=== PATIENT | female | born 1970 | race African-American/Black ===

== ENCOUNTER 2021-08-29 04:38 | Emergency (ER) | payer SELFPAY ==
[~2021-08-29] VITALS: Ht 160 cm; Wt 99.0 kg
[2021-08-29 05:05] VITALS: BP 174/105
[2021-08-29 07:24] LABS: CHLORIDE 105 mEq/L (98-107)
[2021-08-29 07:25] LABS: BASOPHILS % 0.3 % (0.0-2.0); EOSINOPHILS % 0.2 % (0.0-5.0); HEMATOCRIT. 43.9 % (36.0-48.0); HEMOGLOBIN. 15.1 g/dL (12.0-16.0); MEAN CORPUSCULAR HEMOGLOBIN 32.3 pg (28.0-32.0); MEAN CORPUSCULAR VOLUME 94.3 fL (81.0-99.0); MEAN PLATELET VOLUME 7.9 fl (7.4-10.4); MONOCYTES % 8.6 % (2.0-8.0); NEUTROPHILS % 78.9 % (40.0-76.0); PLATELET 375 x1000/uL (130-400); RED BLOOD CELL COUNT 4.66 mill/uL (4.2-5.4); RED CELL DISTRIBUTION WIDTH 13.9 % (11.6-14.6)
[2021-08-29] MEDS ORDERED: TOPUD PO (08:04)
== END 2021-08-29 09:21 | disposition home or self-care (01) ==
LOC: ER 04:38
DX: M54.2 Cervicalgia (principal); N64.4 Mastodynia; R10.12 Left upper quadrant pain; G89.11 Acute pain due to trauma; I10 Essential (primary) hypertension; E03.9 Hypothyroidism, unspecified; D25.9 Leiomyoma of uterus, unspecified; V49.59XA Passenger injured in collision with other motor vehicles in traffic accident, initial encounter; Y93.89 Activity, other specified; Y92.488 Other paved roadways as the place of occurrence of the external cause
CPT/HCPCS: 36415; 74176; 80053; 85025; 99284